=== PATIENT | male | born 1985 | race Two or more races ===

== ENCOUNTER 2016-09-23 18:36 | Emergency (ER) | payer OTHER ==
[2016-09-23] MEDS ORDERED: DIPHTH,PERTUSS(ACELL),TET VAC 0.5 ML VIAL IM V ONE (19:56)
== END 2016-09-23 20:55 | disposition home or self-care (01) ==
LOC: ED 18:36
DX: S61.211A Laceration without foreign body of left index finger without damage to nail, initial encounter (principal); W45.8XXA Other foreign body or object entering through skin, initial encounter; Y99.0 Civilian activity done for income or pay; Z23 Encounter for immunization